=== PATIENT | female | born 1980 | race Caucasian/White ===

== ENCOUNTER 2023-11-20 12:50 | Outpatient (CLI) | payer OTHER, SELFPAY ==
--- OUTSIDE RECORDS SUMMARY | 2023-11-20 12:54 | XMS_ITS | Continuity of Care Document ---
Author Organization [facility] Address [address] [place] [address] Phone Care Team Providers Care Leasing Property Manager Name Role Phone Josue Cuevas MD Unavailable Unavailable Allergies, Adverse Reactions, Alerts Substance Reaction Status Criticality tramadol Active No Information ibuprofen Active No Information Sulfa (Sulfonamide Antibiotics) Active No Information Medications Medication Instructions Dosage Effective Dates (start - stop) Status Comments GABAPENTIN (unknown strength) Not Available - Active DIAZEPAM (unknown strength) Not Available - Active OXYCODONE HCL (unknown strength) Not Available - Active MORPHINE SULFATE ER (unknown strength) Not Available - Active ORPHENADRINE CITRATE (unknown strength) Not Available - Active REXULTI (unknown strength) Not Available - Active SERTRALINE HCL (unknown strength) Not Available - Active OXCARBAZEPINE (unknown strength) Not Available - Active Procedures Procedure Date Office/Outpatient Visit,New, Mod 2016 Office/Outpatient Visit,[facility], Mod 2013 Office/Outpatient Visit,[facility], Mod 2013 Advance Directives Directive Yes / No Effective Date File Name No Information Encounters Encounter Description Practice Location Reason(s) For Visit Diagnoses Date Provider Providers Copied on Encounter [facility], [address], [place], [place], [id number], [place] tel:[phone] No Information 7 Faith Salas. [facility], [address], [address], [place], [place], [id number] , [place]. tel:[phone] Office/Outpat ient Visit,New, Mod [facility], [address], [place], [place], [id number], [place] tel:[phone] [facility] Back pain Nov- 8 7 Cuevas Josue. [facility], [address], [address], [place], [place], [id number] , . [phone] Referring Provider: Kayla Polanco, [facility] [address], [place], [address]. tel:[phone] Office/Outpat ient Visit,Est, Mod Z [facility], [address] [place], [place] [address] [address], [place], [address], [place] tel:[phone] [facility] No Information 0 4 Panvica Christiano. [facility], [address], [address], [place], [place], [id number] , [place]. tel:[phone] Referring Provider: Cuco Vizcarra, [facility] [address] [place], [address]. tel:[phone] Office/Outpat ient Visit,New, Mod Z [facility], [address] [place], [place] [address], [place], [address], [place] tel:[phone] [facility] BIPOLAR AFFECTIVE NOS 4 Cuevas Josue. [facility], [address] [place] [address], [address], [place], [place], [id number] , [place]. tel:[phone] Referring Provider: Cuco Vizcarra, [facility] [address] [place], [address]. tel:[phone] Family History Family Member Type Diagnosis Age At Onset Problem (finding) Problem (finding) Problem (finding) Problem (finding) Problem (finding) Problem (finding) Problem (finding) Payers Payer name Insurance type Covered green party ID Agnes felipe[facility] [id number] Social History Type Description Quantity Date Captured Comments Sex Female Smoking Status No Information Chief Complaint And Reason For Visit No Information Reason For Referral Reason For Referral No Information History Of Present Illness Encounter Date Complaint History Of Prese nt Illness No Information Functional Status Date Functional Assessmen t No Information Instructions Date Instruction Additional Infor olive Weight Management Education Rela wilfrido to Overweight Weight management: I nstructed to return to General Practitioner timeframe: 1 Month. Related to Overweight Assessments Type Assessment Date No Information Patient Care Teams Name Effective Dates (start - stop) Status Members No Information
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
--- NOTE | 2023-11-20 13:00 | CRLHL7_ITS ---
For Patients: As a result of the Century Cures Act, medical imaging exams and procedure reports are released immediately into your electronic medical record. You may view this report before your referring provider. If you have questions, please contact your health care provider. 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 Comparison: MRI 09/14/2020 Findings: Exaggeration of lumbar lordosis. No fractures. No prevertebral or paraspinal edema. No aggressive osseous lesions. The conus medullaris is normal in signal and location. T12-L1: No significant spinal canal stenosis or neural foramen narrowing. L1-2: No significant spinal canal stenosis or neural from narrowing. L2-3: No significant spinal canal stenosis or neural foramen narrowing. L3-4: Worsening mild disc bulge, moderate facet arthrosis and ligamentum flavum buckling. Moderate spinal canal stenosis. Mild right neural foraminal narrowing. No left neural foraminal narrowing. L4-5: Mild facet arthrosis. No significant spinal canal stenosis or neural foramen narrowing. L5-S1: Moderate right facet arthrosis. No significant spinal canal stenosis or neural foraminal narrowing. Impression : 1. No acute osseous or ligamentous abnormality. Stable exaggeration of lumbar lordosis. 2. At L3-4, worsening disc bulge, moderate facet arthropathy and ligamentum flavum buckling that results in moderate spinal canal stenosis and mild right neural foraminal narrowing. 3. Otherwise no significant spinal canal stenosis. Dictated by Gómez Elise MD @ 11/21/2023 4:21:40 PM (Electronically Signed)
--- NOTE | 2023-11-20 13:45 | CRLHL7_ITS ---
For Patients: As a result of the Century Cures Act, medical imaging exams and procedure reports are released immediately into your electronic medical record. You may view this report before your referring provider. If you have questions, please contact your health care provider. Indication: cervicalgia Technique: Noncontrast sagittal T1, T2, STIR and axial T2 spin echo and GRE sequences are provided. Comparison: 04/08/2013 MRI Findings: The overall stature, alignment and intrinsic marrow signal of the cervical spine is within normal limits. Minimal disc bulge at C5-6. No suspicious disc bulges or protrusions. No suspicious central canal or foraminal narrowing. Cervical cord is normal in size, signal, and contour. No intradural pathology. Impression: 1. Examination is significantly limited due to motion artifact. 2. Normal alignment. No evidence of acute osseous or ligamentous abnormality. 3. Minimal disc bulge at C5-6. No significant spinal canal stenosis or neural foraminal narrowing. 4. No abnormal spinal cord signal. Dictated by Gómez Elise MD @ 11/21/2023 4:13:44 PM (Electronically Signed)
--- NOTE | 2023-11-20 14:30 | CRLHL7_ITS ---
For Patients: As a result of the Century Cures Act, medical imaging exams and procedure reports are released immediately into your electronic medical record. You may view this report before your referring provider. If you have questions, please contact your health care provider. Indication: Intervertebral disc degeneration Technique: Noncontrast sagittal T1, T2, STIR and axial T2 sequences are provided. Comparison: MRI 04/08/2013 Findings: Stable thoracic kyphosis. No aggressive osseous lesions. No fractures. No prevertebral or paraspinal edema. No aggressive osseous lesions. Stable central disc extrusion with cephalad migration at T6-7 and T7-8 that contacts and minimally flattens the ventral cord surface. Mild spinal canal stenosis at T6-7 T7-8. No significant spinal canal stenosis or neural foraminal narrowing. No abnormal intramedullary spinal cord signal. Examination is significantly limited due to motion artifact, particularly on axial images. Small central protrusion at T8-9 without significant spinal canal stenosis. Right renal cyst. Impression : 1. Stable disc degeneration at T6-7, T7-8 and T8-9. Mild flattening of the ventral cord surface and mild spinal canal stenosis at T6-7 and T7-8. 2. No neural foramen narrowing. No intradural pathology. 3. No abnormal spinal cord signal. No acute osseous or ligamentous abnormality. 4. Examination is limited by motion artifact. Dictated by Gómez Elise MD @ 11/21/2023 4:17:09 PM (Electronically Signed)
== END 2023-11-20 12:51 | disposition home or self-care (01) ==
PROVIDERS: PCP Family Medicine; Visit Provider Nurse Practitioner Adult Health
DX: M54.2 Cervicalgia (principal); M50.222 Other cervical disc displacement at C5-C6 level; M47.816 Spondylosis without myelopathy or radiculopathy, lumbar region; M51.34 Other intervertebral disc degeneration, thoracic region
CPT/HCPCS: 72141; 72146; 72148

== ENCOUNTER 2024-08-22 13:18 | Outpatient (CLI) | payer OTHER, SELFPAY | END 2024-08-22 13:19 | disposition home or self-care (01) | PROVIDERS: PCP Family Medicine; Visit Provider Family Medicine | DX: Z13.228 Encounter for screening for other metabolic disorders (principal); Z13.6 Encounter for screening for cardiovascular disorders | CPT/HCPCS: 80053; 80061 ==